=== PATIENT | male | born 1945 | race Caucasian/White ===

== ENCOUNTER → 2018-03-10 09:21 | Outpatient (CLI) | payer MEDICARE, OTHER, SELFPAY ==
--- NOTE | 2018-03-10 09:25 | DI.RAD.S_ITS ---
PROCEDURE: XR LUMBAR SPINE MIN 4V INDICATIONS: L5-S1 spondylolisthesis with lower extremity neurogenic daisha TECHNIQUE: 5 total views of the lumbar spine were acquired, including bilateral oblique views. COMPARISON: None. FINDINGS: Bones: 5 nonrib-bearing, lumbar type vertebral bodies are seen. Grade 1 anterolisthesis is seen at the L5-S1 level. There are associated bilateral pars defects present. Moderate disc space narrowing is seen at L5-S1. Mild disc space narrowing is seen at L1-L2. The disc spaces otherwise appear well-preserved. Bridging anterior osteophytes are seen from T11-L3. Lower lumbar spine facet arthropathy is seen. No displaced fractures are seen. No suspicious lytic or blastic lesions are seen. There is partial visualization of a right hip arthroplasty. Moderate to severe degenerative change is seen of the lateral left hip. Soft tissues: Overlying bowel gas pattern is normal. No suspicious soft tissue calcifications. IMPRESSION: Grade 1 anterolisthesis at L5-S1, with associated pars defects. Focal degenerative change is seen at L5-S1. Milder degenerative changes are seen elsewhere. Incidental note is made of: Right hip arthroplasty hardware Moderate to severe degenerative change of the left hip Dictated by: Justice Wilcox M.D. on 03/10/2018 at 8:48 Approved by: Justice Wilcox M.D. on 03/10/2018 at 8:50
== END ==
PROVIDERS: PCP Student in an Organized Health Care Education/Training Program; Visit Provider Physical Medicine & Rehabilitation
DX: M43.17 Spondylolisthesis, lumbosacral region (principal); M51.37 Other intervertebral disc degeneration, lumbosacral region
CPT/HCPCS: 72110; 99215

== ENCOUNTER 2018-04-26 13:34 | Outpatient (CLI) | payer MEDICARE, OTHER, SELFPAY ==
--- NOTE | 2018-04-26 13:43 | DI.RAD.S_ITS ---
PROCEDURE: PAIN L/SI FACET INJ/BLK 1STL INDICATIONS: lumbosacral spondylosis FINDINGS: Fluoroscopic spot filming was performed to verify placement of spinal needles at the L4-5 and L5-S1 level(s), as labeled on the films. Appropriate location(s) of the needle tip(s) was confirmed by injection of iodinated contrast. IMPRESSION: Intraoperative image verification for facet injections at L4-5 and L5-S1 Dictated by: Evan Carrera M.D. on 04/26/2018 at 16:01 Approved by: Evan Carrera M.D. on 04/26/2018 at 16:02
[2018-04-26 14:00] VITALS: BP 135/62; PULSE 61; RESP 16; TEMP 36.2; O2SAT 97
--- NOTE | 2018-04-26 14:10 | P.PCN_ITS ---
Procedures Date/Time Date of procedure: 04/26/18 Time of procedure: 14:09 General Procedure description: PREOP DIAGNOSIS 1. FACET ARTHROPATHY, 2. AXIAL LBP, 3. MULTILEVEL DDD, POST OP DIAGNOSIS 1. FACET ARTHROPATHY, 2. AXIAL LBP, 3. MULTILEVEL DDD, PROCEDURES 1. FLUORSCOPICALLY GUIDED CONTRAST CONTROLLED FACET JOINT INJECTIONS LEFT L4/5 , L5/S1 SURGEON: DO KODAK Mcgregor David is referred by for treatment of Axial LBP FINDINGS Multilevel Facet Arthropathy with Clinically significant axial LBP DESCRIPTION OF PROCEDURE Fluoroscopically guided, contrast-controlled left L4/5, L5/S1 facet joint injections. Following denial of allergy and review of potential side effects and complications, including, but not necessarily limited to, infection, allergic reaction, local tissue breakdown, stroke, temporary or permanent nerve injury, paralysis, and possible , the patient indicated that the patient understood and agreed to proceed. An informed consent document was signed by the patient, witnessed by a nurse, and placed in the patient's chart. Additionally, other treatment options including medications, modalities, and physical therapy were reviewed with the patient. In the prone position, following sterile prep and drape of the lumbar region, the posterior aspect of the left L4/5, L5/S1 facet joints were identified fluoroscopically. The skin was anesthetized via a 25-gauge 1.5-inch needle with 1% lidocaine solution into the corresponding facet joints. At this point, a 22-gauge 3.5-inch spinal needle was atraumatically introduced and advanced under fluoroscopic guidance into the corresponding facet joints. Following negative aspiration, injections of approximately 0.2-cc of Isovue 200 confirmed interarticular placement without vascular uptake. Radiological data, including multiple fluoroscopic views of the lumbosacral spine, reveal a spinal needle at the left L4/5, L5/S1 facet joints. Subsequent views show flow of contrast material both superiorly and inferiorly within the joint space without vascular or intrathecal uptake. At this point, a total of 0.5 cc including a mixture of 0.25cc Marcaine and 0.25cc betamethasone was injected without complication into each of the corresponding facet joints. The procedure tolerated the procedure well without signs or symptoms of complications prior to transfer to the recovery area continued monitoring without incident. The patient was then transferred to the recovery area where they were observed for an appropriate period of time after the injection. The patient reported a VAS score of 7 prior to the procedure and a post-procedure VAS of 0. Total Fluoroscopy Time: 12.7 seconds POST OP INSTRUCTIONS The patient was provided a Pain Log to continue to record their response to the target-specific procedure prior to follow-up visit with their referring physician. Additionally, specific post-injection care instructions and a contact number to our office were provided if concerns arise regarding possible complications associated with the procedure are suspected. Delmar Tatum DO Complications: none
[2018-04-26 14:23] VITALS: BP 160/76; PULSE 68; RESP 16; O2SAT 97
[2018-04-26 14:25] VITALS: BP 150/79; PULSE 67; RESP 18; O2SAT 97
[2018-04-26] MEDS: BETAMETHASONE 30 MG/5 ML MDV 12 MG INJ (14:32)
[2018-04-26] MEDS: BUPIVACAINE 0.5% (PF) VIAL 2 ML INJ (14:32)
[2018-04-26] MEDS: IOPAMIDOL 15 ML VIAL 3 ML INJ (14:32)
[2018-04-26 14:33] VITALS: BP 153/81; PULSE 64; RESP 18; O2SAT 99
[2018-04-26 14:42] VITALS: BP 141/58; PULSE 61; RESP 16; O2SAT 99
--- NOTE | 2018-04-27 17:44 | PC.NURSE ---
did follow up call to nikko he reports he feels a little irritation in after the lidocaine wore off but otherwise is doing better and hopes to play golf tomorrow or the next day. I explained disc vs facet to him the best I could as he was asking about that.
== END 2018-04-26 16:02 | disposition home or self-care (01) ==
PROVIDERS: PCP Student in an Organized Health Care Education/Training Program; Visit Provider Physical Medicine & Rehabilitation
DX: M47.816 Spondylosis without myelopathy or radiculopathy, lumbar region (principal); M47.817 Spondylosis without myelopathy or radiculopathy, lumbosacral region; M51.36 Other intervertebral disc degeneration, lumbar region; M51.37 Other intervertebral disc degeneration, lumbosacral region; M43.17 Spondylolisthesis, lumbosacral region; M48.061 Spinal stenosis, lumbar region without neurogenic claudication; M54.5 Low back pain
CPT/HCPCS: 64493; J0702; J2250